=== PATIENT | male | born 1950 | race Caucasian/White ===

== ENCOUNTER 2020-04-16 18:17 | Emergency (ER) | payer OTHER ==
[2020-04-16] MEDS ORDERED: TETANUS & DIPHTHERIA TOX,ADULT 0.5 ML VIAL ONE (19:47)
[2020-04-16] MEDS ORDERED: ACETAMINOPHEN 500 MG TAB ONE (19:47)
--- NOTE | 2020-04-16 19:55 | RAD REPORT ---
EXAM DESCRIPTION: RAD - Hand Left 3 View - 04/16/2020 7:48 pm CLINICAL HISTORY: trauma Pain and swelling to left hand, laceration COMPARISON: No comparisons FINDINGS: Soft tissue laceration is seen at the base of the thumb. No fracture or radiopaque foreign body.
[2020-04-16] MEDS ORDERED: LIDOCAINE 1% MPF 5 ML VIAL ONE ×2 (20:26→20:31)
--- NOTE | 2020-04-16 20:55 | EDPHYS ---
Physician Documentation [facility] Name: Tin Freeman Age: 69 yrs Sex: Male : 1950 Arrival Date: 04/16/2020 Time: 18:19 Bed 15 Private MD: ED Physician Juan C Patel HPI: 04/16 19:39 This 69 yrs old Male presents to ER via Ambulatory with complaints of Hand mh7 Injury, Laceration To Hand. 19:39 The patient or guardian reports injury, a laceration, irregular. The complaints affect mh7 the left hand thumb. Context: [place] park, resulted from a penetrating injury, by sharp metal, Screw on crossbow that he was using. Onset: The symptoms/episode began/occurred just prior to arrival, today. Modifying factors: The symptoms are alleviated by nothing, the symptoms are aggravated by movement. Associated signs and symptoms: Pertinent negatives: cyanosis distally, decreased sensation distally, fever, nausea, numbness distally, tingling distally, vomiting. Severity of symptoms: At their worst the symptoms were moderate, earlier today, in the emergency department the symptoms are unchanged. Patient states that he was shooting a crossbow when metal screw of bow appeared to cut across left thumb area. He denies any other injuries.. Historical: - Allergies: 18:25 No Known Allergies; ca1 - Home Meds: 18:25 Metformin Oral [Active]; Crestor oral oral [Active]; ca1 - PMHx: 18:25 Hypertension; Diabetes - NIDDM; High Cholesterol; ca1 - PSHx: 18:25 Knee surgery; ca1 - Immunization history:: Adult Immunizations up to date, Last tetanus immunization: unknown. - Social history:: Smoking status: Patient denies any tobacco usage or history of. ROS: 19:39 Constitutional: Negative for fever, chills, and weight loss, Eyes: Negative for injury, mh7 pain, redness, and discharge, ENT: Negative for injury, pain, and discharge, Neck: Negative for injury, pain, and swelling, Cardiovascular: Negative for chest pain, palpitations, and edema, Respiratory: Negative for shortness of breath, cough, wheezing, and pleuritic chest pain, Abdomen/GI: Negative for abdominal pain, nausea, vomiting, diarrhea, and constipation, Back: Negative for injury and pain, : Negative for injury, bleeding, discharge, and swelling, Neuro: Negative for headache, weakness, numbness, tingling, and seizure, Psych: Negative for depression, anxiety, suicide ideation, homicidal ideation, and hallucinations, Allergy/Immunology: Negative for hives, rash, and allergies, Endocrine: Negative for neck swelling, polydipsia, polyuria, polyphagia, and marked weight changes, Hematologic/Lymphatic: Negative for swollen nodes, abnormal bleeding, and unusual bruising. Exam: 19:39 Constitutional: This is a well developed, well nourished patient who is awake, alert, mh7 and in no acute distress. Head/Face: Normocephalic, atraumatic. Neck: Trachea midline, no thyromegaly or masses palpated, and no cervical lymphadenopathy. Supple, full range of motion without nuchal rigidity, or vertebral point tenderness. No Meningismus. Chest/axilla: Normal chest wall appearance and motion. Nontender with no deformity. No lesions are appreciated. Cardiovascular: Regular rate and rhythm with a normal S1 and S2. No gallops, murmurs, or rubs. Normal PMI, no JVD. No pulse deficits. Respiratory: Lungs have equal breath sounds bilaterally, clear to auscultation and percussion. No rales, rhonchi or wheezes noted. No increased work of breathing, no retractions or nasal flaring. Abdomen/GI: Soft, non-tender, with normal bowel sounds. No distension or tympany. No guarding or rebound. No evidence of tenderness throughout. Back: No spinal tenderness. No costovertebral tenderness. Full range of motion. Neuro: Awake and alert, GCS 15, oriented to person, place, time, and situation. Cranial nerves II-XII grossly intact. Motor strength 5/5 in all extremities. Sensory grossly intact. Cerebellar exam normal. Normal gait. Psych: Awake, alert, with orientation to person, place and time. Behavior, mood, and affect are within normal limits. 20:48 Musculoskeletal/extremity: Extremities: noted in the left hand, thumb: laceration, ROM: mh7 intact in all extremities, Circulation is intact in all extremities. Pulses: are normal with no appreciated deficits, Perfusion: the patient is normally perfused throughout, Perfusion: the extremity is normally perfused throughout, Sensation intact. Compartment Syndrome exam of affected extremity: is normal. no pain, no numbness, no tingling, no sensation deficit, no palor, no weak pulses, Joints: All joints appear normal with full range of motion. Weight bearing: able to fully bear weight, without difficulty. 20:48 Skin: injury, laceration(s), the wound is approximately 5 cm(s), with a depth of 0.5 cm(s), of the left hand, thumb proximal medial aspect, that can be described as clean, no foreign body, irregular, with mild bleeding. Vital Signs: 18:22 BP 116 / 72; Pulse 77; Resp 15 S; Temp 98.1(TE); Pulse Ox 97% on R/A; Weight 111.13 kg ca1 (R); Height 5 ft. 5 in. (165.10 cm) (R); Pain 1/; 19:00 BP 98 / 71; Pulse 78; Resp 16; Pulse Ox 97% on R/A; vc 20:30 BP 95 / 68; Pulse 65; Resp 15; Pulse Ox 98% on R/A; vc 18:22 Body Mass Index 40.77 (111.13 kg, 165.10 cm) ca1 Laceration: 20:48 Wound Repair of 5cm ( 2.0in ) subcutaneous laceration to left hand,thumb. Irregularly mh7 shaped.. Distal neuro/vascular/tendon intact. Anesthesia: Local anesthetic administered with 6 mls of 1% lidocaine. Wound prep: Extensive cleansing with hibiclenz by nurse, Wound irrigation with saline by nurse, Wound explored extensively, Copious irrigation. Skin closed with 12 3-0 Prolene using interrupted sutures and sterile technique. Dressed with Bacitracin, 4x4's, non-adherent dressing. Patient tolerated well. MDM: 19:17 Patient medically screened. [facility] 20:48 Differential diagnosis: open fracture, contusion, abrasion, Laceration. Data reviewed: [facility] vital signs, nurses notes. Data interpreted: Pulse oximetry: on room air is 97 %. Interpretation: normal. Counseling: I had a detailed discussion with the patient and/or guardian regarding: the historical points, exam findings, and any diagnostic results supporting the discharge/admit diagnosis, the need for outpatient follow up, to return to the emergency department if symptoms worsen or persist or if there are any questions or concerns that arise at home. Response to treatment: the patient's symptoms have markedly improved after treatment. 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 Lot #: [id number]. } Route: IM; Site: left deltoid; 21:00 Follow up: Response: No adverse reaction vc 19:45 Not Given (Patient Refused): Tylenol 1000 mg PO once vc 20:25 Drug: Lidocaine (1 %) 10 ml Volume: 5 ml; Route: Infiltration; vc Disposition: 04/16/20 20:55 Discharged to Home. Impression: Laceration Left Hand. - Condition is Stable. - Discharge Instructions: Laceration Care, Adult, [id number]. - Prescriptions for Keflex 500 mg Oral Capsule - take 1 capsule by ORAL route every 8 hours for 7 days; 21 capsule. - Medication Reconciliation Form, Thank You Letter, Antibiotic Education, Prescription Opioid Use form. - Follow up: Private Physician; When: 48 Hours; Reason: Wound Recheck, Worsening of condition, Recheck today's complaints, Continuance of care, Re-evaluation by your physician. - Problem is new. - Symptoms have improved. Signatures: Dispatcher [employer] EDMS Anna Garcia RN RN [facility] Chrissy Gunderson RN RN vc Juan C Patel MD MD 7 Corrections: (The following items were deleted from the chart) 21:00 20:55 04/16/2020 20:55 Discharged to Home. Impression: Laceration Left Hand. Condition vc is Stable. Forms are Medication Reconciliation Form, Thank You Letter, Antibiotic Education, Prescription Opioid Use. Follow up: Private Physician; When: 48 Hours; Reason: Wound Recheck, Worsening of condition, Recheck today's complaints, Continuance of care, Re-evaluation by your physician. Problem is new. Symptoms have improved. [facility]
--- NOTE | 2020-04-16 20:55 | ER ---
Nurse's Notes [facility] Name: Tin Freeman Age: 69 yrs Sex: Male : 1950 Arrival Date: 04/16/2020 Time: 18:19 Bed 15 Private MD: Diagnosis: Laceration Left Hand Presentation: 04/16 18:22 Chief complaint: Patient states: Lac on L hand, on the thumb area <30 minutes ago. ca1 Bleeding controlled. Coronavirus screen: Client denies travel out of the [place] in the last 14 days. At this time, the client does not indicate any symptoms associated with coronavirus-19. Ebola Screen: Patient negative for fever greater than or equal to 101.5 degrees Fahrenheit, and additional compatible Ebola Virus Disease symptoms Patient denies exposure to infectious person. Patient denies travel to an Ebola-affected area in the 21 days before illness onset. No symptoms or risks identified at this time. Initial Sepsis Screen: Does the patient meet any 2 criteria? No. Patient's initial sepsis screen is negative. Does the patient have a suspected source of infection? No. Patient's initial sepsis screen is negative. Risk Assessment: Do you want to hurt yourself or someone else? Patient reports no desire to harm self or others. Onset of symptoms was April 16, 2020. 18:22 Method Of Arrival: Ambulatory ca1 18:22 Acuity: DANAY 4 ca1 Historical: - Allergies: 18:25 No Known Allergies; ca1 - Home Meds: 18:25 Metformin Oral [Active]; Crestor oral oral [Active]; ca1 - PMHx: 18:25 Hypertension; Diabetes - NIDDM; High Cholesterol; ca1 - PSHx: 18:25 Knee surgery; ca1 - Immunization history:: Adult Immunizations up to date, Last tetanus immunization: unknown. - Social history:: Smoking status: Patient denies any tobacco usage or history of. Screenin:32 Abuse screen: Denies threats or abuse. Nutritional screening: No deficits noted. tw2 Tuberculosis screening: No symptoms or risk factors identified. Fall Risk None identified. Assessment: 18:30 General: Appears in no apparent distress. obese, well groomed, Behavior is calm, tw2 cooperative, appropriate for age. Pain: Complains of pain in left arm. Neuro: Level of Consciousness is awake, alert, obeys commands, Oriented to person, place, time, situation. Cardiovascular: Patient's skin is warm and dry. Respiratory: Airway is patent Respiratory effort is even, unlabored, Respiratory pattern is regular, symmetrical. GI: No signs and/or symptoms were reported involving the gastrointestinal system. : No signs and/or symptoms were reported regarding the genitourinary system. EENT: No signs and/or symptoms were reported regarding the EENT system. Derm: No signs and/or symptoms reported regarding the dermatologic system. Musculoskeletal: Circulation, motion, and sensation intact. Range of motion: intact in all extremities. Injury Description: Laceration sustained to left arm is pt states "its about a 4 inch gash on my LEFT forearm behind my thumb and it is going to bleed pretty good if you unwrap it". 19:05 Reassessment: Patient appears in no apparent distress at this time. Patient states pain vc is more of an ache and "not too bad." Assumed care from ELAINE Connell. 20:00 Reassessment: Patient and/or family updated on plan of care and expected duration. Pain vc level reassessed. PATIENT STATES LONG NO ONE IS TOUCHING HIS LACERATION THERE IS NO PAIN.. 21:00 Reassessment: Patient appears in no apparent distress at this time. Patient states vc feeling better. Patient states symptoms have improved. Vital Signs: 18:22 BP 116 / 72; Pulse 77; Resp 15 S; Temp 98.1(TE); Pulse Ox 97% on R/A; Weight 111.13 kg ca1 (R); Height 5 ft. 5 in. (165.10 cm) (R); Pain 1/10; 19:00 BP 98 / 71; Pulse 78; Resp 16; Pulse Ox 97% on R/A; vc 20:30 BP 95 / 68; Pulse 65; Resp 15; Pulse Ox 98% on R/A; vc 18:22 Body Mass Index 40.77 (111.13 kg, 165.10 cm) ca1 ED Course: 18:19 Patient arrived in ED. ag5 18:22 Arm band placed on right wrist. ca1 18:24 Triage completed. ca1 18:31 Becki Sims RN is Primary Nurse. tw2 18:32 Bed in low position. Call light in reach. Pulse ox on. NIBP on. tw2 19:00 Juan C Patel MD is Attending Physician. [facility] 19:48 Hand Left 3 View XRAY In Process Unspecified. EDMS 19:57 Primary Nurse role handed off by Becki Sims RN 19:57 Chrissy Gunderson RN is Primary Nurse. vc 20:25 Assist provider with laceration repair on lateral aspect of left hand that was between vc 2.6 to 7.5 cm using sutures. Set up tray. Performed by Juan C Patel MD Dressed with 4X4s, Kerlix, RYDER WRAP Patient tolerated well. 21:00 Patient did not have IV access during this emergency room visit. 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 Lot #: [id number]. } Route: IM; Site: left deltoid; 21:00 Follow up: Response: No adverse reaction vc 19:45 Not Given (Patient Refused): Tylenol 1000 mg PO once vc 20:25 Drug: Lidocaine (1 %) 10 ml Volume: 5 ml; Route: Infiltration; vc Outcome: 20:55 Discharge ordered by . [facility] 21:00 Patient left the ED. vc 21:00 Discharged to home ambulatory. vc 21:00 Condition: improved 21:00 Discharge instructions given to patient, Instructed on discharge instructions, follow up and referral plans. medication usage, Demonstrated understanding of instructions, follow-up care, medications, Prescriptions given X 1. Signatures: Dispatcher [employer] EDMS Becki Sims RN RN tw2 Anna Garcia RN RN ca1 Jade, Sam ag5 Chrissy Gunderson RN RN Juan C Patel MD MD [facility] Corrections: (The following items were deleted from the chart) 18:25 18:22 Pulse 77bpm; Resp 15bpm; Spontaneous; Pulse Ox 97% RA; Temp 98.1F Temporal; ca1 111.13 kg Reported; Height 5 ft. 5 in. Reported; BMI: 40.7; Pain 1/10; ca1
[2020-04-16 22:18] VITALS: TEMP 98.1; O2SAT 97
[2020-04-16 22:19] VITALS: BP 98/71
== END 2020-04-16 21:00 | disposition home or self-care (01) ==
LOC: ER 18:17
PROC: 0JQK0ZZ Repair Left Hand Subcutaneous Tissue and Fascia, Open Approach (ICD-10-PCS; principal; 2020-04-16)
DX: S61.012A Laceration without foreign body of left thumb without damage to nail, initial encounter (principal); W45.8XXA Other foreign body or object entering through skin, initial encounter; Y93.89 Activity, other specified; Y92.830 Public park as the place of occurrence of the external cause; Z23 Encounter for immunization; I10 Essential (primary) hypertension; E11.9 Type 2 diabetes mellitus without complications; E78.00 Pure hypercholesterolemia, unspecified
CPT/HCPCS: 90471; 90714; 99284